=== PATIENT | male | born 1980 | race Two or more races ===

== ENCOUNTER 2021-02-05 19:06 | Inpatient (IN) | payer MEDICARE, MEDICAID ==
[~2021-02-05] VITALS: Ht 172.7 cm; Wt 90.7 kg
[2021-02-05 19:12] VITALS: BP 159/87
[2021-02-05 22:02] LABS: Hematocrit 44.8 % (41.0-53.0); Hemoglobin 14.1 g/dL (13.5-17.5); Mean Corpuscular Hemoglobin 27.5 pg (28.0-32.0); Mean Corpuscular Hgb Conc. 31.5 g/dL (32.0-36.0); Mean Corpuscular Volume 87.5 fL (80.0-100.0); Red Blood Cells 5.12 10^6/uL (4.5-5.90); Red Cell Distribution Width 19.2 % (11.8-14.3); White Blood Cell 11.8 10^3/uL (4.4-10.8)
[2021-02-05 22:06] LABS: Basophils % (manual) 0 (0.0-2.0); Blast Cells 0; Eosinophils % (manual) 0 (0-7); Metamyelocytes % 0; Myelocytes % 0; Promyelocytes % 0; Reactive Lymphocytes 0
[2021-02-05 22:18] LABS: Albumin 4.2 g/dL (3.4-5.0); Anion Gap 13 (5-15); Blood Urea Nitrogen 59 mg/dL (7-18); Carbon Dioxide 23 mmol/L (21-32); Chloride 98 mmol/L (98-107); Glucose 155 mg/dL (74-106); Magnesium 3.5 mg/dL (1.6-2.6); Potassium 4.8 mmol/L (3.5-5.1); Sodium 134 mmol/L (136-145)
[2021-02-05 22:21] LABS: Alanine Aminotransferase 199 U/L (16-61); Alkaline Phosphatase 324 U/L (45-117); Aspartate Aminotransferase 189 U/L (15-37); BUN/Creatinine Ratio 7.1; Bilirubin, Total 0.6 mg/dL (0.2-1.0); GFR African American 9 mL/min; GFR Non-African American 8 mL/min; Total Protein 9.5 g/dL (6.4-8.2)
[2021-02-05 22:29] LABS: Blood Alcohol < 3.0 mg/dL (0-5)
[2021-02-05 22:36] LABS: Band Neutrophils % (manual) 16; Lymphocytes % (manual) 5 (10.0-50.0); Monocytes % (manual) 4 (0-12)
[2021-02-05] MEDS ORDERED: ACETAMINOPHEN 325 MG TAB PO PRN (22:45)
[2021-02-05] MEDS ORDERED: NITROGLYCERIN 0.4 MG SL TAB SL PRN (22:45)
[2021-02-05] MEDS ORDERED: MORPHINE SULFATE INJECTION 2 MG/ML SYRG IV PRN (22:45)
[2021-02-05] MEDS ORDERED: DEXTROSE (50%) 50ML SYRG IV PRN (22:45)
[2021-02-05] MEDS ORDERED: cloNIDine HCL 0.1 MG TAB PO PRN (22:45)
[2021-02-05] MEDS ORDERED: ONDANSETRON HCL 4 MG/2 ML VIAL IV PRN (22:45)
[2021-02-06] MEDS ORDERED: ONDANSETRON HCL 4 MG/2 ML VIAL IV PRN
[2021-02-06] MEDS ORDERED: InsuLIN REG 1unit/0.01ml Soln (100units/ml) SC SCH (07:00)
[2021-02-06] MEDS ORDERED: ACCU-CHEK COMFORT CURVE STRIP VI SCH (07:00)
== END 2021-02-06 00:20 | disposition left against medical advice (07) | DRG 917 ==
LOC: EDBD 19:06 → ER 19:10 → TELE 22:40
PROVIDERS: ADMIT Nurse Practitioner; ATTEND Internal Medicine
DX: T40.411A Poisoning by fentanyl or fentanyl analogs, accidental (unintentional), initial encounter (principal); G92.9 Unspecified toxic encephalopathy; N18.6 End stage renal disease; I13.2 Hypertensive heart and chronic kidney disease with heart failure and with stage 5 chronic kidney disease, or end stage renal disease; E11.22 Type 2 diabetes mellitus with diabetic chronic kidney disease; H54.8 Legal blindness, as defined in USA; I50.9 Heart failure, unspecified; Z53.29 Procedure and treatment not carried out because of patient's decision for other reasons; Z99.2 Dependence on renal dialysis; Z83.3 Family history of diabetes mellitus; Z86.73 Personal history of transient ischemic attack (TIA), and cerebral infarction without residual deficits; Y92.89 Other specified places as the place of occurrence of the external cause
CPT/HCPCS: 36415; 71045; 80053; 80320; 83735; 85007; 85027; 93005; 99291; G0378

== ENCOUNTER 2021-10-18 22:21 | Emergency (ER) | payer MEDICARE, MEDICAID ==
[~2021-10-18] VITALS: Ht 190.5 cm; Wt 97.5 kg
[2021-10-18 22:42] VITALS: BP 132/77
== END 2021-10-18 23:38 | disposition home or self-care (01) ==
LOC: EEVIPCON 22:21 → ER 22:21
DX: S60.512A Abrasion of left hand, initial encounter (principal); I13.2 Hypertensive heart and chronic kidney disease with heart failure and with stage 5 chronic kidney disease, or end stage renal disease; E11.22 Type 2 diabetes mellitus with diabetic chronic kidney disease; N18.6 End stage renal disease; I50.9 Heart failure, unspecified; E78.5 Hyperlipidemia, unspecified; E03.9 Hypothyroidism, unspecified; Z86.73 Personal history of transient ischemic attack (TIA), and cerebral infarction without residual deficits; Y09 Assault by unspecified means; Y93.89 Activity, other specified; Y92.89 Other specified places as the place of occurrence of the external cause; Y99.8 Other external cause status
CPT/HCPCS: 73130